=== PATIENT | male | born 1980 | race Caucasian/White ===

== ENCOUNTER 2018-04-28 10:10 | Emergency (ER) | payer OTHER ==
[~2018-04-28] VITALS: Ht 167.6 cm; Wt 62.6 kg
[~2018-04-28 10:10] MED LIST: TRAMADOL HCL50 M1 PO
--- NOTE | 2018-04-28 11:20 | ED GENERAL ADULT ---
History of Present Illness General Chief Complaint: General Adult Stated Complaint: INCREASING LEFT SIDED BODY PAIN W/ MUSCLE SPASMS Source: patient, old records Exam Limitations: no limitations Vital Signs & Intake/Output Vital Signs & Intake/Output Vital Signs Date Time Temp Pulse Resp B/P B/P Pulse O2 O2 Flow FiO2 Mean Ox Delivery Rate 04/28 1035 97.8 69 20 123/82 99 Room Air Allergies Coded Allergies: NO KNOWN ALLERGIES (04/27/18) Reconcile Medications Hydrocodone/Acetaminophen (Callao 5-325 Tablet) 5 MG-325 MG TABLET 1 TAB PO Q4- 6 PRN PRN SEVERE PAIN Methylprednisolone. (Medrol) 4 MG TAB.DS.PK 1 DP PO AD NECK PAIN 6 on day 1 then reduce by one tablet daily until gone Tramadol HCl 50 MG TABLET 1 TAB PO BIDP PRN pain Triage Note: C/O PAIN ON LEFT SIDE OF NECK, X 4 DAYS. SEEN AT A WALK IN IN [place] AND HERE YESTEDAY. STATES PAIN IS WORSE TODAY, UNABLE TO MOVE NECK. Triage Nurses Notes Reviewed? yes Onset: Abrupt Duration: day(s): (4), constant, continues in ED Timing: single episode today Injury Environment: home Severity: mild, moderate Severity Numbers: 9 No Modifying Factors: none HPI: 38-year-old male with no past medical history presents for reevaluation of neck pain. Patient reports that for the past 4 days she has had worsening pain and left-sided his neck. There is no trauma or triggering event. The pain is located in the left neck and radiates in the left shoulder. No numbness or tingling. There is no trauma or known triggering event. He states he woke up like that 4 days ago. He does note that he had been on multiple plane rides recently and was sleeping on the plane. He denies any fever chest pain shortness of breath sore throat dental pain. He does report associated mild headache and scalp numbness. The pain is much much worse with range of motion of the neck and left shoulder. He's never had this before. He's been taking Valium tramadol and cyclobenzaprine without much improvement. He was seen in the ER yesterday with same symptoms x-rays were done which were negative patient was discharged with tramadol which she's been taking without any improvement. (Eliceo GUTIERREZ,Hemant) Past History Travel History Traveled to [place] past 21 day No Medical History Any Pertinent Medical History? see below for history Neurological: NONE EENT: NONE Cardiovascular: NONE Respiratory: NONE Gastrointestinal: NONE Hepatic: NONE Renal: NONE Musculoskeletal: NONE Psychiatric: NONE Endocrine: NONE Blood Disorders: NONE Cancer(s): NONE EDI CONSULTANT/Reproductive: NONE Surgical History Surgical History: non-contributory Psychosocial History What is your primary language [place] Tobacco Use: Current Daily Use Daily Tobacco Use Amount/Type: =< 4 Cigarettes daily ETOH Use: occasional use Family History Hx Contributory? No (Hemant Elias) Review of Systems Review of Systems Constitutional: Reports: no symptoms. EENTM: Reports: no symptoms. Respiratory: Reports: no symptoms. Cardiovascular: Reports: no symptoms. GI: Reports: no symptoms. Genitourinary: Reports: no symptoms. Musculoskeletal: Reports: see HPI, joint pain, muscle pain, muscle stiffness, neck pain. Skin: Reports: no symptoms. Neurological/Psychological: Reports: no symptoms. Hematologic/Endocrine: Reports: no symptoms. Immunologic/Allergic: Reports: no symptoms. All Other Systems: Reviewed and Negative (Hemant Elias) Physical Exam Physical Exam General Appearance: well developed/nourished, no apparent distress, alert, awake Head: atraumatic, normal appearance Eyes: Bilateral: normal appearance, PERRL, EOMI. Ears, Nose, Throat: normal pharynx, normal ENT inspection, hearing grossly normal Neck: normal inspection, supple, limited range of motion, no midline tenderness, LEFT TRAPEZIUS AND CERVICAL PARASPINOUS MUSCLES ARE TENDER TO PALPATION. the left trapezius muscle appears to be slightly swollen and tight to palpation. Range of motion of the neck is reduced due to pain. No lymphadenopathy no erythema no focal fluctuant areas. Pain is also reproduces range of motion of the left shoulder, no JVD or carotid bruits Respiratory: normal breath sounds, chest non-tender, no respiratory distress, lungs clear Cardiovascular: regular rate/rhythm, normal peripheral pulses Peripheral Pulses: 2+ radial (R), 2+ radial (L) Back: normal inspection, normal range of motion, no vertebral tenderness Extremities: normal inspection, no edema, range of motion of the left shoulder is reduced due to pain. No other joint swelling or pain neurovascular supply is intact the bilateral upper extremities Skin: intact, normal color, warm/dry Lymphatic: no anterior cervical cam Core Measures ACS in differential dx? No CVA/TIA Diagnosis: No Sepsis Present: No Sepsis Focused Exam Completed? No (Eliceo GUTIERREZ,Hemant) Progress Differential Diagnoses I considered the following diagnoses in my evaluation of the patient: [Muscle strain/spasm, cervical radiculopathy, fracture, abscess, lymphadenopathy, herniated disc] Plan of Care: Orders Procedure Date/time Status CT HEAD WO IV CONTRAST 04/[address] CERV SPINE WO IV CONTRAST 04/28 1126 Active Patient is here with left-sided neck pain and headache. He was seen here yesterday with similar symptoms. X-rays were negative. This pain is very reproducible with range of motion and palpation. The left-sided trapezius muscle appears slightly swollen compared to the right. Patient is medicated with IM Toradol. CT scan of the head and cervical spine ORDERED. CT scan is not showing any acute findings per patient is feeling somewhat better after Toradol. Reviewed results with patient. Suspect this is musculoskeletal. There is no signs of infection. Patient will be treated with a Medrol Dosepak and Callao. Advised continuing cyclobenzaprine and ibuprofen as needed. Patient was referred to orthopedics yesterday. Follow-up with them and primary care. Discussed return precautions in detail patient agrees the plan Diagnostic Imaging: Viewed by Me: CT Scan. Discussed w/RAD: CT Scan. Radiology Impression: PATIENT: NICK IRWIN PRESENT AGE: 38 PATIENT ACCOUNT NO: [id number] : 80 LOCATION: [facility] ORDERING PHYSICIAN: Hemant GUTIERREZ SERVICE DATE: 04/28/18 EXAM TYPE: CAT - CT CERV SPINE WO IV CONTRAST; CT HEAD WO IV CONTRAST EXAMINATION: CT HEAD WITHOUT CONTRAST CT CERVICAL SPINE WITHOUT CONTRAST CLINICAL INFORMATION: Headache. Neck pain. COMPARISON: None. TECHNIQUE: Contiguous axial imaging was performed from the skullbase to vertex without intravenous administration of contrast. Multidetector helical imaging was performed through the cervical spine. DLP: 918.5 mGy-cm. FINDINGS: HEAD: There is no evidence of acute intracranial hemorrhage or territorial infarction. No abnormal mass effect or midline shift is seen. Avalos to white matter differentiation is well preserved. No extra-axial fluid collections are identified. The ventricles are normal in size. Brain parenchymal attenuation is normal. The osseous structures and soft tissues are normal. The mastoid air cells and visualized portions of the paranasal sinuses are well aerated. CERVICAL SPINE: No acute fracture or dislocation is identified in the cervical spine. Degenerative endplate spurring and moderate disc narrowing are visible at C6-C7 where there is a disc- osteophyte complex. There is milder disc space narrowing and a posterior annular bulge at C5-C6. Uncovertebral joint spurring contributes to mild foraminal encroachment at C3-C4. The atlantoaxial articulation is normally maintained. The paraspinal soft tissues are normal. The lung apices are clear. IMPRESSION: 1. No acute intracranial pathology. 2. No evidence of acute cervical spine traumatic injury. Moderate degenerative endplate changes with a disc-osteophyte complex at C6-C7. Milder spondylosis at remaining levels. DICTATED BY: Jerry Dalal MD DATE/TIME DICTATED:04/28/181148 BUDGET ENGINEER:PARTHA DATE/TIME TRANSCRIBED:04/28/181148 CONFIDENTIAL, DO NOT COPY WITHOUT APPROPRIATE AUTHORIZATION. Initial ED EKG: none (Hemant Elias) Departure Departure Disposition: HOME OR SELF CARE Condition: Stable Clinical Impression Primary Impression: Neck pain on left side Referrals: Gurjit HEATH,Raimundo Mendez (PCP/Family) Additional Instructions: Follow-up with her primary care doctor and orthopedic doctor as soon as possible. Take Medrol Dosepak as directed for the full course. Continue ibuprofen and muscle relaxers as needed. Callao for severe pain only this may cause drowsiness. Monitor symptoms closely return with any concern. Departure Forms: Customer Survey General Discharge Information Prescriptions: Current Visit Scripts Hydrocodone/Acetaminophen (Callao 5-325 Tablet) 1 TAB PO Q4-6 PRN PRN SEVERE PAIN #10 TAB Methylprednisolone. (Medrol) 1 DP PO AD #1 DP 6 on day 1 then reduce by one tablet daily until gone (Hemant Elias) PA/PACKER DENTURE Co-Sign Statement Statement: ED Attending supervision documentation- [] I saw and evaluated the patient. I have also reviewed all the pertinent lab results and diagnostic results. I agree with the findings and the plan of care as documented in the PA's/PACKER DENTURE's documentation. [x] I have reviewed the ED Record and agree with the PA's/PACKER DENTURE's documentation. [] Additions or exceptions (if any) to the PAs/PACKER DENTURE's note and plan are summarized below: [] (Robert Mcmullen DO) Critical Care Note Critical Care Note Critical Care Time: non-applicable (Eliceo GUTIERREZ,Hemant)
--- NOTE | 2018-04-28 12:11 | CT SCAN REPORT ---
EXAMINATION: CT HEAD WITHOUT CONTRAST CT CERVICAL SPINE WITHOUT CONTRAST CLINICAL INFORMATION: Headache. Neck pain. COMPARISON: None. TECHNIQUE: Contiguous axial imaging was performed from the skullbase to vertex without intravenous administration of contrast. Multidetector helical imaging was performed through the cervical spine. DLP: 918.5 mGy-cm. FINDINGS: HEAD: There is no evidence of acute intracranial hemorrhage or territorial infarction. No abnormal mass effect or midline shift is seen. Avalos to white matter differentiation is well preserved. No extra-axial fluid collections are identified. The ventricles are normal in size. Brain parenchymal attenuation is normal. The osseous structures and soft tissues are normal. The mastoid air cells and visualized portions of the paranasal sinuses are well aerated. CERVICAL SPINE: No acute fracture or dislocation is identified in the cervical spine. Degenerative endplate spurring and moderate disc narrowing are visible at C6-C7 where there is a disc-osteophyte complex. There is milder disc space narrowing and a posterior annular bulge at C5-C6. Uncovertebral joint spurring contributes to mild foraminal encroachment at C3-C4. The atlantoaxial articulation is normally maintained. The paraspinal soft tissues are normal. The lung apices are clear. IMPRESSION: 1. No acute intracranial pathology. 2. No evidence of acute cervical spine traumatic injury. Moderate degenerative endplate changes with a disc-osteophyte complex at C6-C7. Milder spondylosis at remaining levels.
[2018-04-28] MEDS ORDERED: NORCO 5-325 TA1 EACH PO (12:35)
[2018-04-28] MEDS ORDERED: MEDROL4 M2 PO (12:35)
[2018-04-28 12:48] VITALS: BP 118/72
== END 2018-04-28 12:49 ==
LOC: ERH 10:10
DX: M54.2 Cervicalgia (principal)
CPT/HCPCS: 96372; J1885